=== PATIENT | female | born 1950 | race Caucasian/White ===

== ENCOUNTER 2017-05-26 10:30 | Outpatient (CLI) | payer OTHER ==
--- NOTE | 2017-05-26 11:55 | DIAGNOSTIC IMAGING REPORT ---
PROCEDURE: CT THORAX WITHOUT CONTRAST INDICATION: CHRONIC SMOKING, HX RECTAL ADENOCARCINOMA TECHNIQUE: Noncontrast axial images were obtained of the chest with coronal and sagittal reformations. COMPARISON: Chest CT 05/08/2016. FINDINGS: Interval calcification of previously noted 5 mm left posterior sulcus nodule which is unchanged in size. There are no additional pulmonary nodules. No adenopathy or effusion. Stable small thyroid nodules. Minor atherosclerosis of the aorta. Normal heart size. Left renal cysts. Stable 1.4 cm right renal lesion with fatty component suggestive of an angiomyolipoma. Ventral wall mesh present. Moderate degenerative changes of the spine. IMPRESSION: 1. Interval calcification of 5 mm left posterior sulcus nodule consistent with a granuloma 2. Stable 1.4 cm right renal lesion suggestive of an angiomyolipoma
== END 2017-05-26 23:00 ==
LOC: LAB SRH 10:30 → CT SRH 10:30
DX: R91.1 Solitary pulmonary nodule (principal); N28.9 Disorder of kidney and ureter, unspecified; C20 Malignant neoplasm of rectum
CPT/HCPCS: 90074; 90100; 93005; 95059